=== PATIENT | female | born 1975 | race Caucasian/White ===

== ENCOUNTER 2018-03-11 22:11 | Emergency (ER) | payer OTHER ==
--- NOTE | 2018-03-11 23:21 | PD ---
HPI Chief Complaint: Psychiatric Symptoms Time Seen by Provider: 23:20 Travel History International Travel<30 days: No Contact w/Intl Traveler<30days: No Traveled to known affect area: No History of Present Illness HPI 42-year-old female came to the emergency room with history of trying to jump out of the car. She was Beavers acted and brought in by the carton repairer. Patient has been totally noncommunicative from the time she got in. She has been very angry and yelling outbursts and verbal profanities. Her vital signs were taken and it was within normal limit. Patient does have psychiatric history apparently. She is not from the area and continues to say that she has to catch a plane and leave and wants to see a psychiatrist emergently who can clear her. PFSH Past Medical History Narrative Medical List of her past medical, surgical, social and family history is reviewed from the nursing note. ?: Unknown Social History Tobacco Use: Yes Allergies-Medications (Allergen,Severity, Reaction): Coded Allergies: No Known Allergies (Verified Allergy, Unknown, 03/11/18) Comments List of her allergies reviewed from the nursing note. Reported Meds & Prescriptions Reported Meds & Active Scripts Active Reported Prazosin (Prazosin HCl) 2 Mg Cap 4 Mg PO HS Trazodone (Trazodone HCl) 100 Mg Tablet 100 Mg PO HS Oxycodone (Oxycodone HCl) 5 Mg Cap 5 Mg PO Q4H PRN Clonazepam 1 Mg Tab 1 Mg PO DIRECTED Fluoxetine (Fluoxetine HCl) 20 Mg Capsule 20 Mg PO BID Omeprazole 20 Mg Cap Narrative Medication List of her home medications reviewed from the nursing note. Review of Systems Except as stated in HPI: all other systems reviewed are Neg Psychiatric: Positive: Suicidal Ideations Physical Exam Narrative GENERAL: Awake, alert, agitated, verbally abusive and belligerent SKIN: Focused skin assessment warm/dry. HEAD: Atraumatic. Normocephalic. EYES: Pupils equal and round. No scleral icterus. No injection or drainage. ENT: No nasal bleeding or discharge. Mucous membranes pink and moist. NECK: Trachea midline. No JVD. CARDIOVASCULAR: Regular rate and rhythm. No murmur appreciated. RESPIRATORY: No accessory muscle use. Clear to auscultation. Breath sounds equal bilaterally. GASTROINTESTINAL: Abdomen soft, non-tender, nondistended. Hepatic and splenic margins not palpable. MUSCULOSKELETAL: No obvious deformities. No clubbing. No cyanosis. No edema. NEUROLOGICAL: Awake and alert. No obvious cranial nerve deficits. Motor grossly within normal limits. Normal speech. PSYCHIATRIC: Appropriate mood and affect; insight and judgment normal. Data Data Last Documented VS Vital Signs Date Time Temp Pulse Resp B/P (MAP) Pulse Ox O2 Delivery O2 Flow Rate FiO2 03/12/18 10:33 03/12/18 03:06 96.2 82 20 95 Room Air Orders Orders Complete Blood Count With Diff (03/11/18 23:21) Comprehensive Metabolic Panel (03/11/18 23:21) Thyroid Stimulating Hormone (03/11/18 23:21) Psych Screen (03/11/18 23:21) Trazodone (Desyrel) (03/12/18 00:45) Clonazepam (Klonopin) (03/12/18 00:45) Alcohol (Ethanol) (03/12/18 02:10) Alcohol (Ethanol) (03/12/18 02:11) Diet Regular Basic (03/12/18 Breakfast) Ed Discharge Order (03/12/18 10:13) Labs Laboratory Tests Test 03/11/18 23:17 03/12/18 09:22 White Blood Count 10.5 TH/MM3 Red Blood Count 4.68 MIL/MM3 Hemoglobin 13.6 GM/DL Hematocrit 40.2 % Mean Corpuscular Volume 86.0 FL Mean Corpuscular Hemoglobin 29.0 PG Mean Corpuscular Hemoglobin Concent 33.7 % Red Cell Distribution Width 16.0 % Platelet Count 258 TH/MM3 Mean Platelet Volume 7.7 FL Neutrophils (%) (Auto) 67.9 % Lymphocytes (%) (Auto) 24.7 % Monocytes (%) (Auto) 5.7 % Eosinophils (%) (Auto) 1.2 % Basophils (%) (Auto) 0.5 % Neutrophils # (Auto) 7.1 TH/MM3 Lymphocytes # (Auto) 2.6 TH/MM3 Monocytes # (Auto) 0.6 TH/MM3 Eosinophils # (Auto) 0.1 TH/MM3 Basophils # (Auto) 0.1 TH/MM3 CBC Comment DIFF FINAL Differential Comment Blood Urea Nitrogen 14 MG/DL Creatinine 0.78 MG/DL Random Glucose 86 MG/DL Total Protein 8.0 GM/DL Albumin 3.8 GM/DL Calcium Level 8.8 MG/DL Alkaline Phosphatase 118 U/L Aspartate Amino Transf (AST/SGOT) 19 U/L Alanine Aminotransferase (ALT/SGPT) 35 U/L Total Bilirubin 0.3 MG/DL Sodium Level 141 MEQ/L Potassium Level 3.7 MEQ/L Chloride Level 108 MEQ/L Carbon Dioxide Level 22.0 MEQ/L Anion Gap 11 MEQ/L Estimat Glomerular Filtration Rate 81 ML/MIN Thyroid Stimulating Hormone 3rd Gen 1.710 uIU/ML Ethyl Alcohol Level LESS THAN 3 MG/DL LESS THAN 3 MG/DL MDM Medical Decision Making Medical Screen Exam Complete: Yes Emergency Medical Condition: Yes Medical Record Reviewed: Yes Differential Diagnosis Suicidal ideation, anger outbursts Narrative Course 12:26 AM patient has been medically cleared based on the labs. She needs to be psych screen. Procedures EKG Prior to Arrival: Matthew Hill MD Mar 11, 2018 23:21
[2018-03-11] MEDS ORDERED: OMEP20CA2 (23:37)
[2018-03-11] MEDS ORDERED: FLUO20CA12 PO (23:37)
[2018-03-11] MEDS ORDERED: TRAZ100T10 PO (23:43)
[2018-03-11] MEDS ORDERED: OXYC1CAP PO (23:43)
[2018-03-11] MEDS ORDERED: CLON1TAB PO (23:43)
[2018-03-11] MEDS ORDERED: PRAZ2CAP PO (23:43)
[2018-03-11 23:45] LABS: AUTOMATED NEUTROPHIL # 7.1 TH/MM3 (1.8-7.7); BASOPHIL # 0.1 TH/MM3 (0-0.2); BASOPHIL % 0.5 % (0.0-2.0); EOSINOPHIL # 0.1 TH/MM3 (0-0.4); EOSINOPHIL % 1.2 % (0.0-4.0); HEMATOCRIT 40.2 % (35.0-46.0); HEMOGLOBIN 13.6 GM/DL (11.6-15.3); LYMPH % 24.7 % (9.0-44.0); LYMPHOCYTE # 2.6 TH/MM3 (1.0-4.8); MEAN CORPUSCULAR HGB CONC 33.7 % (32.0-36.0); MEAN PLATELET VOLUME 7.7 FL (7.0-11.0); MONO % 5.7 % (0.0-8.0); MONOCYTE # 0.6 TH/MM3 (0-0.9); NEUT % 67.9 % (16.0-70.0); PLATELET COUNT 258 TH/MM3 (150-450); RED BLOOD COUNT 4.68 MIL/MM3 (4.00-5.30); WHITE BLOOD COUNT 10.5 TH/MM3 (4.0-11.0)
[2018-03-12 00:02] LABS: ALBUMIN 3.8 GM/DL (3.4-5.0); AST (GOT) 19 U/L (15-37); BLOOD UREA NITROGEN 14 MG/DL (7-18); CALCIUM 8.8 MG/DL (8.5-10.1); CHLORIDE 108 MEQ/L (98-107); CREATININE 0.78 MG/DL (0.50-1.00); GLOMERULAR FILTRATION RATE 81 ML/MIN (>89); GLUCOSE,RANDOM 86 MG/DL (74-106); SODIUM (NA) 141 MEQ/L (136-145)
[2018-03-12 00:14] LABS: ALKALINE PHOSPHATASE 118 U/L (45-117); ALT (GPT) 35 U/L (10-53); TOTAL BILIRUBIN ADULT 0.3 MG/DL (0.2-1.0)
[2018-03-12] MEDS ORDERED: traZODone HCL 100 MG TAB PO ONE (00:45)
[2018-03-12] MEDS ORDERED: clonazePAM 1 MG TAB PO ONE (00:45)
[2018-03-12 03:06] VITALS: BP 117/56; PULSE 82; RESP 20; TEMP 96.2; O2SAT 95
--- NOTE | 2018-03-12 10:04 | PD ---
History of Present Illness Chief Complaint: Psychiatric Symptoms Time Seen by Provider: 09:30 Travel History International Travel<30 Days: No Contact w/Intl Traveler<30days: No Known affected area: No Legal Status Legal Status: [place] History of Present Illness: Patient is a 42-year-old female visiting her daughter in [facility] from [place]. She was placed under a Beavers act by the [facility] [facility] Police Department. Beavers Act states while Andreea Ruffin was driving home from [place] with her daughter Josephine Ruffin, Andreea opened up the car door and states she wanted to kill herself. Please admitted that she open the car door out of anger. Aurora Ruffin also stated that Andreea threatened to run into traffic because she wanted to harm herself." Patient states that she is here from [place] visiting her daughter and finance in [facility]. They were all at [employer] yesterday when patient disclosed when the finance was going to propose to her daughter. She states her daughter was angry and moved the car to a different location in the [employer] parking lost so that she could not find them. She states that she walked around for an hour and was not feeling well due to the heat. They traveled back to [facility] together when an argument started while they were driving. Patient states that she did not open the door when the car was moving. She endorses no suicidal or homicidal ideations. She states that she has a flight back to [place] today and she just wants to go home. Patient has been in the . She has a history of a TBI. She also suffers from PTSD and is on Prazosin. She states the she has undergone 25 surgeries and she has been without her medications which is upsetting. She states [facility] [place] and feels that her mental health needs are being met. Chart reviewed and discussed with nurse. Patient is in a hospital gown in room J108. Patient is alert and oriented 4. Fund of knowledge is good. Gait is steady. Speech is normal with rate tone and volume. No abnormal thought content. Abstract thinking is concrete. Recent and remote memory is intact. Attention and concentration is adequate. Insight and judgment is good. Patient endorses no suicidal ideations. Patient is at low risk for self harm or harming others. Patient has good resources in place for her mental illness. Patient is emotional about the situation with her family. Patient is stable. Will lift Beavers Act and discharge patient today so that she may travel back to [place] where she resides. Dx: Mood Disorder PFSH Past Medical History ?: Unknown Psychiatric History Psychiatric History Patient is treated by the [facility] in [place] for PTSD and anxiety. Hx Psychiatric Treatment: HX: PTSD, ANXIETY History of Inpatient Treatment: No Social History Hx Alcohol Use: No Hx Tobacco Use: No Hx Substance Use: No (PT DENIES) Hx of Substance Use Treatment: No Allergies-Medications (Allergen,Severity, Reaction): Coded Allergies: No Known Allergies (Verified Allergy, Unknown, 03/11/18) Reported Meds & Prescriptions Reported Meds & Active Scripts Active Reported Prazosin (Prazosin HCl) 2 Mg Cap 4 Mg PO HS Trazodone (Trazodone HCl) 100 Mg Tablet 100 Mg PO HS Oxycodone (Oxycodone HCl) 5 Mg Cap 5 Mg PO Q4H PRN Clonazepam 1 Mg Tab 1 Mg PO DIRECTED Fluoxetine (Fluoxetine HCl) 20 Mg Capsule 20 Mg PO BID Omeprazole 20 Mg Cap Mental Status Examination Appearance: Appropriate Consciousness: Alert Orientation: x4 Motor Activity: Normal gait Speech: Unremarkable Language: Adequate Fund of Knowledge: Adequate Attention and Concentration: Adequate Memory: Unremarkable Mood: Appropriate Affect: Appropriate Thought Process & Associations: Intact Thought Content: Appropriate Hallucination Type: None Delusion Type: None Suicidal Ideation: No Suicidal Plan: No Suicidal Intention: No Homicidal Ideation: No Homicidal Plan: No Homicidal Intention: No Insight: Adequate Judgment: Adequate [facility] Medical Decision Making Medical Record Reviewed: Yes Assessment/Plan Patient is a 42-year-old female who traveled from [place] to [place] to visit with her daughter and megan. During the visit there was a argument which led to the patient's Beavers act. Patient states that daughter was angry and called police indicating that patient tried to jump out of the moving car. Patient states that this is not the case that she has no suicidal ideations. Patient currently receives [facility] for PTSD, TBI, anxiety status [facility] [place] Patient feels that she has good resources in place. Patient is at low risk for self-harm or injury to others. Will lift Beavers act. Patient will be flying back to [place] today. Daughter has agreed to pick her up and take her to the [place] airport to catch her flight. Orders Orders Complete Blood Count With Diff (03/11/18 23:21) Comprehensive Metabolic Panel (03/11/18 23:21) Thyroid Stimulating Hormone (03/11/18 23:21) Psych Screen (03/11/18 23:21) Drug Screen, Random Urine (03/11/18 23:21) Trazodone (Desyrel) (03/12/18 00:45) Clonazepam (Klonopin) (03/12/18 00:45) Alcohol (Ethanol) (03/12/18 02:10) Alcohol (Ethanol) (03/12/18 02:11) Diet Regular Basic (03/12/18 Breakfast) Results Vital Signs Date Time Temp Pulse Resp B/P (MAP) Pulse Ox O2 Delivery O2 Flow Rate FiO2 03/12/18 03:06 96.2 82 20 117/56 (76) 95 Room Air Laboratory Tests Test 03/11/18 23:17 03/12/18 09:22 White Blood Count 10.5 Red Blood Count 4.68 Hemoglobin 13.6 Hematocrit 40.2 Mean Corpuscular Volume 86.0 Mean Corpuscular Hemoglobin 29.0 Mean Corpuscular Hemoglobin Concent 33.7 Red Cell Distribution Width 16.0 Platelet Count 258 Mean Platelet Volume 7.7 Neutrophils (%) (Auto) 67.9 Lymphocytes (%) (Auto) 24.7 Monocytes (%) (Auto) 5.7 Eosinophils (%) (Auto) 1.2 Basophils (%) (Auto) 0.5 Neutrophils # (Auto) 7.1 Lymphocytes # (Auto) 2.6 Monocytes # (Auto) 0.6 Eosinophils # (Auto) 0.1 Basophils # (Auto) 0.1 CBC Comment DIFF FINAL Differential Comment Blood Urea Nitrogen 14 Creatinine 0.78 Random Glucose 86 Total Protein 8.0 Albumin 3.8 Calcium Level 8.8 Alkaline Phosphatase 118 Aspartate Amino Transf (AST/SGOT) 19 Alanine Aminotransferase (ALT/SGPT) 35 Total Bilirubin 0.3 Sodium Level 141 Potassium Level 3.7 Chloride Level 108 Carbon Dioxide Level 22.0 Anion Gap 11 Estimat Glomerular Filtration Rate 81 Thyroid Stimulating Hormone 3rd Gen 1.710 Ethyl Alcohol Level LESS THAN 3 Diagnosis Primary Impression: Mood disorder Disposition: 01 DISCHARGE HOME Condition: Stable Carolina Montgomery Mar 12, 2018 10:04
--- NOTE | 2018-03-12 10:13 | PD ---
Physical Exam Time Seen by Provider: 10:12 Narrative TANIA Quijano has evaluated the patient, lifted the Beavers act and cleared the patient for discharge. Data Data Last Documented VS Vital Signs Date Time Temp Pulse Resp B/P (MAP) Pulse Ox O2 Delivery O2 Flow Rate FiO2 03/12/18 03:06 96.2 82 20 117/56 (76) 95 Room Air Orders Orders Complete Blood Count With Diff (03/11/18 23:21) Comprehensive Metabolic Panel (03/11/18 23:21) Thyroid Stimulating Hormone (03/11/18 23:21) Psych Screen (03/11/18 23:21) Drug Screen, Random Urine (03/11/18 23:21) Trazodone (Desyrel) (03/12/18 00:45) Clonazepam (Klonopin) (03/12/18 00:45) Alcohol (Ethanol) (03/12/18 02:10) Alcohol (Ethanol) (03/12/18 02:11) Diet Regular Basic (03/12/18 Breakfast) Labs Laboratory Tests Test 03/11/18 23:17 03/12/18 09:22 White Blood Count 10.5 TH/MM3 Red Blood Count 4.68 MIL/MM3 Hemoglobin 13.6 GM/DL Hematocrit 40.2 % Mean Corpuscular Volume 86.0 FL Mean Corpuscular Hemoglobin 29.0 PG Mean Corpuscular Hemoglobin Concent 33.7 % Red Cell Distribution Width 16.0 % Platelet Count 258 TH/MM3 Mean Platelet Volume 7.7 FL Neutrophils (%) (Auto) 67.9 % Lymphocytes (%) (Auto) 24.7 % Monocytes (%) (Auto) 5.7 % Eosinophils (%) (Auto) 1.2 % Basophils (%) (Auto) 0.5 % Neutrophils # (Auto) 7.1 TH/MM3 Lymphocytes # (Auto) 2.6 TH/MM3 Monocytes # (Auto) 0.6 TH/MM3 Eosinophils # (Auto) 0.1 TH/MM3 Basophils # (Auto) 0.1 TH/MM3 CBC Comment DIFF FINAL Differential Comment Blood Urea Nitrogen 14 MG/DL Creatinine 0.78 MG/DL Random Glucose 86 MG/DL Total Protein 8.0 GM/DL Albumin 3.8 GM/DL Calcium Level 8.8 MG/DL Alkaline Phosphatase 118 U/L Aspartate Amino Transf (AST/SGOT) 19 U/L Alanine Aminotransferase (ALT/SGPT) 35 U/L Total Bilirubin 0.3 MG/DL Sodium Level 141 MEQ/L Potassium Level 3.7 MEQ/L Chloride Level 108 MEQ/L Carbon Dioxide Level 22.0 MEQ/L Anion Gap 11 MEQ/L Estimat Glomerular Filtration Rate 81 ML/MIN Thyroid Stimulating Hormone 3rd Gen 1.710 uIU/ML Ethyl Alcohol Level LESS THAN 3 MG/DL LESS THAN 3 MG/DL MDM Supervised Visit with [facility]: No Narrative Course TANIA Quijano has evaluated the patient, lifted the Beavers act and cleared the patient for discharge. Patient has a flight to leave tomorrow to go home. patient contracts safety. Denies suicidal or homicidal ideations. Patient will be provided [facility] resource [facility] follow[facility]. Has friends and family for support. Patient was medically cleared by alternate provider prior to psych screening. Patient has been evaluated by psychiatry and and is now cleared for discharge. Diagnosis Primary Impression: Mood disorder Referrals: [facility] Primary Care Physician Psychiatrist Patient Instructions: General Instructions, Mood Disorders (ED) Additional Instruction: Contract safety to your self and others Follow-up with psychiatry Follow-up with primary care provider Follow-up with Chester Aguilera Return to the emergency department immediately with worsening of symptoms Med/Other Pt SpecificInfo: No Change to Meds, No Meds Exist/No RX given Disposition: 01 DISCHARGE HOME Condition: Stable Celi Awad Mar 12, 2018 10:13
== END 2018-03-12 10:37 | disposition home or self-care (01) ==
LOC: NEPD 22:11 → NEPJ 03-12 10:37
DX: F39 Unspecified mood [affective] disorder (principal); F43.10 Post-traumatic stress disorder, unspecified; Z79.899 Other long term (current) drug therapy; Z87.820 Personal history of traumatic brain injury
CPT/HCPCS: 80053; 80307; 84443; 85025; 99283